=== PATIENT | female | born 1990 | race Caucasian/White ===

== ENCOUNTER 2016-09-20 10:20 | Emergency (ER) | payer OTHER ==
[~2016-09-20] VITALS: Ht 160 cm; Wt 63.7 kg
[~2016-09-20 10:20] MED LIST: FLEXERIL10 MG PO; IBUPROFEN800 MG PO; KEFLEX500 MG PO; MACROBID100 MG PO; MEDROL DOSEPAK4 MG PO; PHENERGAN-CODE120 ML PO; PRENATAL TABLE1 EAC3 PO; ROBITUSSIN100 MG/5 M PO; VENTOLIN HFA18 GM IH; ZOFRAN ODT4 MG PO; [UNRECOGNIZED DRUG - REMARK]
[2016-09-20 12:03] LABS: HEMATOCRIT 39.7 % (36.0-46.0); MCH 29.4 PG (29.0-34.0); MCHC 33.8 G/DL (30.0-36.0); MCV 87.1 FL (83-99); MEAN PLAT.VOLUME 10.6 uM^3 (9.5-12.4); PLATELET COUNT 211 K/uL (156-360); RBC DIS.WIDTH-CV 12.4 % (11.8-14.6); RBC DIS.WIDTH-SD 38.7 % (39-53); RED BLOOD COUNT 4.56 M/uL (3.80-5.20); WHITE BLOOD COUNT 13.2 K/uL (4.1-10.2)
[2016-09-20 12:15] LABS: CHLORIDE 103 mEq/L (99-109); SODIUM 136 mEq/L (136-147)
[2016-09-20 12:17] LABS: GLUCOSE 106 mg/dL (70-99)
[2016-09-20 12:19] LABS: ANION GAP 14 MEQ/L (2-14); TOTAL BILIRUBIN 0.5 mg/dL (0.0-1.0)
[2016-09-20 12:21] LABS: ALKALINE PHOSPHATASE 74 IU/L (3-129); GFR ESTIMATE (CALCULATED) > 59 mL/min/
[2016-09-20 12:22] LABS: UREA NITROGEN (BUN) 10 mg/dL (9-23)
[2016-09-20 12:30] LABS: INFLUENZA A VIRAL ANTIGEN NEGATIVE; INFLUENZA B VIRAL ANTIGEN NEGATIVE
[2016-09-20 12:31] LABS: QUANTITATIVE HCG < 4.0 MIU/ML
[2016-09-20 13:11] LABS: ADD MIUA? YES; BILIRUBIN NEGATIVE; BLOOD SMALL; COLOR YELLOW ((YELLOW)); GLUCOSE (STRIP) NEGATIVE; KETONES NEGATIVE; LEUKOCYTES NEGATIVE; NITRITE NEGATIVE; PROTEIN (STRIP) NEGATIVE; SPECIFIC GRAVITY 1.001 (1.000-1.030); UROBILINOGEN 0.2 MG/DL (0.2-1.0)
[2016-09-20 13:53] LABS: BACTERIA RARE; CASTS NONE SEEN /LPF; CRYSTALS NONE SEEN; EPITHELIAL CELLS 2+; MUCUS NONE SEEN; RED BLOOD CELLS 0-5 /HPF (0-5); UCUL ADDED? NO; WHITE BLOOD CELLS 0-5 /HPF (0-5)
[2016-09-20] MEDS ORDERED: ZOFRAN ODT4 MG PO (14:05)
[2016-09-20 14:34] VITALS: BP 103/63
== END 2016-09-20 14:45 | disposition home or self-care (01) ==
LOC: EME 10:20
PROVIDERS: Nurse Practitioner Family
DX: B34.9 Viral infection, unspecified (principal); E86.0 Dehydration; J02.9 Acute pharyngitis, unspecified; J45.909 Unspecified asthma, uncomplicated; F17.200 Nicotine dependence, unspecified, uncomplicated
CPT/HCPCS: 80053; 81003; 84702; 85027; 87502; 99281; 99285; J7030

== ENCOUNTER 2016-12-01 07:44 | Emergency (ER) | payer OTHER ==
[~2016-12-01] VITALS: Ht 160 cm; Wt 64.0 kg
[2016-12-01] MEDS ORDERED: PROAIR HFA8.5 GM IH (08:22)
[2016-12-01 09:17] VITALS: BP 115/73
== END 2016-12-01 09:18 | disposition home or self-care (01) ==
LOC: EME 07:44
DX: J45.901 Unspecified asthma with (acute) exacerbation (principal); F17.200 Nicotine dependence, unspecified, uncomplicated
CPT/HCPCS: 99281; 99283; J8540

== ENCOUNTER 2017-07-31 12:23 | Emergency (ER) | payer OTHER ==
[~2017-07-31] VITALS: Ht 160 cm; Wt 66.9 kg
[~2017-07-31 12:23] MED LIST changes: +PROAIR HFA8.5 GM IH
[2017-07-31] MEDS ORDERED: FLEXERIL5 MG PO (14:04)
[2017-07-31] MEDS ORDERED: MOTRIN600 MG PO (14:04)
[2017-07-31 14:23] VITALS: BP 121/80
== END 2017-07-31 14:25 | disposition home or self-care (01) ==
LOC: EME 12:23
DX: M54.5 Low back pain (principal); S90.32XA Contusion of left foot, initial encounter; W22.8XXA Striking against or struck by other objects, initial encounter; R05 Cough; F17.200 Nicotine dependence, unspecified, uncomplicated; J45.909 Unspecified asthma, uncomplicated
CPT/HCPCS: 99281; 99283

== ENCOUNTER 2017-12-10 20:35 | Emergency (ER) | payer OTHER ==
[~2017-12-10] VITALS: Ht 160 cm; Wt 70.9 kg
[~2017-12-10 20:35] MED LIST changes: +FLEXERIL5 MG PO; +MOTRIN600 MG PO
[2017-12-10] MEDS ORDERED: MEDROL DOSEPAK4 MG PO (21:59)
[2017-12-10] MEDS ORDERED: NORCO 5/3251 TABLET PO (21:59)
[2017-12-10 22:22] VITALS: BP 124/83
== END 2017-12-10 22:23 | disposition home or self-care (01) ==
LOC: EME 20:35
DX: M77.9 Enthesopathy, unspecified (principal); F17.200 Nicotine dependence, unspecified, uncomplicated; Z79.51 Long term (current) use of inhaled steroids
CPT/HCPCS: 73110; 99281; 99284; J7512